=== PATIENT | female | born 1965 | race Caucasian/White ===

== ENCOUNTER 2021-06-25 10:20 | Outpatient (CLI) | payer OTHER, SELFPAY ==
--- NOTE | 2021-06-25 10:29 | US_ITS ---
STUDY: THYROID ULTRASOUND REASON FOR EXAM: Female, 55 years old. NODULE- AREA OF PALPABLE LUMP ON LEFT NECK TECHNIQUE: Ultrasound evaluation of the thyroid was performed with real-time and static figueroa-scale imaging. COMPARISON: None. FINDINGS: RIGHT LOBE: The right lobe of the thyroid gland measures 4.1 x 1.7 cm. There is a homogeneous echotexture. There are no demonstrated solid, cystic or complex lesions. LEFT LOBE: The left lobe of the thyroid gland measures 4.1 x 1.4 cm. There is a homogeneous echotexture. There are no demonstrated solid, cystic or complex lesions. ISTHMUS: The isthmus measures 2 mm. There is a 19 X 11mm cyst of the left side of the neck in the subcutaneous fat. At the level of the left submandibular gland is 18 x 20 mm nodule. US/Thyroid IMPRESSION: There are no acute findings on this ultrasound examination of the thyroid. Subcutaneous nodule on the left side. These may represent granulomas, sebaceous cyst, sequale of previous trauma. There is a nodule either within or abutting the left submandibular gland. CT neck with IV is recommended to further evaluate. This is a nonspecific finding by ultrasound Electronically Signed: Allen Cervantes MD at 13:39 EST ,
== END 2021-06-25 23:59 | disposition home or self-care (01) ==
LOC: US 10:27
PROVIDERS: PCP Internal Medicine; Referring Provider Internal Medicine; Visit Provider Internal Medicine
DX: E04.1 Nontoxic single thyroid nodule (principal)
CPT/HCPCS: 76536

== ENCOUNTER → 2021-10-10 | Outpatient (CLI) | payer OTHER, SELFPAY ==
--- NOTE | 2021-10-10 15:47 | VDLE_ITS ---
Reason For Study: DVT RIGHT LEFT GSV is normal. GSV is normal. CFV is compressible, spontaneous, phasic, CFV is compressible, spontaneous, phasic, competent and demonstrates normal competent, and demonstrates normal augmentation. augmentation. FV is compressible, spontaneous, phasic, FV is compressible, spontaneous, phasic, competent and demonstrates normal competent and demonstrates normal augmentation. augmentation. POP V is compressible, spontaneous, phasic, POP V is compressible, spontaneous, phasic, competent and demonstrates normal competent and demonstrates normal augmentation. augmentation. T/P Trunk is compressible. T/P Trunk is compressible. PTV is compressible. PTV is compressible. RT PerV is compressible. LT PerV is compressible. Procedure This is a venous duplex using B-mode, color flow and spectral Doppler. Exam performed in department. A preliminary report was called and/or faxed to Linda. VL/Venous Duplex US - [place] Extrem Interpretation Summary Deep veins of the lower extremities are bilaterally patent and compressible seg mentally. There is no evidence of deep vein thrombosis on either side. Valvular competence appears in tact within the proximal deep venous systems bilaterally. The great saphenous veins appear bila terally patent and compressible segmentally. Ordering Physician: Jossue Mckeon Referring Physician: Lora Kovacs Performed By: Flora Castillo RVT
== END | disposition home or self-care (01) ==
LOC: CVS 15:44
PROVIDERS: PCP Internal Medicine; Visit Provider Podiatrist
DX: I82.409 Acute embolism and thrombosis of unspecified deep veins of unspecified lower extremity (principal)
CPT/HCPCS: 93970

== ENCOUNTER → 2022-02-22 | Outpatient (CLI) | payer OTHER, SELFPAY ==
--- NOTE | 2022-02-22 15:18 | CT_ITS ---
EXAM: CT ABDOMEN AND PELVIS WITH INTRAVENOUS CONTRAST CLINICAL INDICATION: ABD HERNIA W/O OBSTRUCTION. LLQ BUMP TECHNIQUE: Helically acquired images were obtained of the abdomen and pelvis with intravenous contrast. This CT exam was performed using one or more of the following dose reduction techniques: automated exposure control, adjustment of the mA and/or kV according to patient size, and/or use of iterative reconstruction technique. This report was created using iTwin report generation technology. CONTRAST: Oral and amp; IV Gastrografin and amp; 100mL [id number] COMPARISON: None. FINDINGS: LOWER THORAX: 3 mm left lower lobe pulmonary nodule noted on image 6. ABDOMEN: LIVER: Low attenuation foci in the liver consistent with hepatic cysts. No follow-up is necessary. GALLBLADDER AND BILE DUCTS: Normal. No calcified gallstones. No gallbladder distention or wall edema. No intra- or extrahepatic biliary ductal dilation. PANCREAS: Normal. No focal cystic or solid mass. SPLEEN: Normal. Normal size without focal cystic or solid mass. ADRENALS: Normal. No nodules. KIDNEYS AND URETERS: Subcentimeter bilateral renal cysts. Normal renal size and position. No hydronephrosis. STOMACH AND BOWEL: Mild stool burden within the large bowel and rectum. PELVIS: APPENDIX: Appendix is visualized and normal in appearance. BLADDER: Normal. REPRODUCTIVE: Unremarkable as visualized. No mass. ABDOMEN and PELVIS: INTRAPERITONEAL SPACE: Normal. No ascites or other fluid collection. No free air. BONES/JOINTS: Normal. No suspicious lytic or blastic abnormality. SOFT TISSUES: No evidence of abdominal wall hernia. VASCULATURE: Normal. Abdominal aorta is non-dilated. LYMPH NODES: Normal. No enlarged lymph nodes. CT/Abdomen/Pelvis WITH Contrast IMPRESSION: 1. No acute abdominal or pelvic abnormality. 2. No evidence of abdominal wall hernia. 3. 3 mm left lower lobe pulmonary nodule. Fleischner Society Guidelines (MacMahon, et al. Radiology 2017; 284(1):228-43) suggest the following. For low-risk patients, no follow-up is necessary. For high-risk patients (smoking history or other known risk factors) an optional chest CT at 12 months could be performed. Electronically Signed: Thomas Ennis MD at 8:36 EDT Reading Location ID and State: [facility] / [place] Tel , Service support ,
== END | disposition home or self-care (01) ==
LOC: CT 15:15
PROVIDERS: PCP Internal Medicine; Referring Provider Surgery; Visit Provider Surgery
DX: K46.9 Unspecified abdominal hernia without obstruction or gangrene (principal)
CPT/HCPCS: 74177; Q9967